=== PATIENT | male | born 1985 | race Caucasian/White ===

== ENCOUNTER 2016-10-21 12:42 | Emergency (ER) | payer OTHER ==
[~2016-10-21] VITALS: Ht 172.7 cm; Wt 74.8 kg
[~2016-10-21 12:42] MED LIST: AMOXICILLIN500 MG PO; AMOXIL500 MG PO; BACTRIM DS 8001 TAB PO; CYCLOBENZAPRINE5 M2 PO; IBUPROFEN800 M1 PO; POLYTRIM O200 GTT/BO OPH; ZOFRAN 4 MG TABL4 MG PO
[2016-10-21 12:47] VITALS: BP 128/79
--- NOTE | 2016-10-21 13:28 | ED THROAT/DENTAL COMPLAINT ---
History of Present Illness General Chief Complaint: Sore Throat, Dental Pain Stated Complaint: SWOLLEN UVULA,SORE THROAT Source: patient Exam Limitations: no limitations Vital Signs & Intake/Output Vital Signs & Intake/Output Vital Signs Date Time Temp Pulse Resp B/P Pulse O2 O2 Flow FiO2 Ox Delivery Rate 10/21 1247 98.2 69 16 128/79 98 Room Air Allergies Coded Allergies: NO KNOWN ALLERGIES (03/07/14) Reconcile Medications Augmentin (Augmentin 500-125 Tablet) 500 MG-125 MG TABLET 1 TAB PO BID PHARYNGITIS Cyclobenzaprine HCl 5 MG TABLET 1 TAB PO TIDPRN MUSCLE STRAIN Ibuprofen 800 MG TABLET 1 TAB PO TID PRN PAIN Methylprednisolone. (Medrol) 4 MG TAB.DS.PK 1 DP PO AD INFLAMMATION 6 on day 1 then reduce by one tablet daily until gone Triage Note: PT STATES HE WOKE UP WITH A SORE THROAT AND HIS UVULA IS SWOLLEN Triage Nurses Notes Reviewed? yes Onset: Abrupt Duration: constant Timing: single episode today Severity: moderate Severity Numbers: 5 Modifying Factors: Worsens With: eating. HPI: Patient is a 31-year-old male who woke up this morning noticing sore throat and uvula swelling. Patient is able tolerate by mouth denies any similar sick contacts. Denies any fever chills difficulty swallowing difficulty breathing ear pain and is otherwise without complaints. (OLIVIA LEE) Past History Travel History Traveled to [place] past 21 day No Medical History Any Pertinent Medical History? none Neurological: NONE EENT: NONE Cardiovascular: NONE Respiratory: NONE Gastrointestinal: NONE Hepatic: NONE Renal: NONE Musculoskeletal: NONE Psychiatric: NONE Endocrine: NONE Blood Disorders: NONE Cancer(s): NONE AUTOMOTIVE SERVICE DIRECTOR/Reproductive: NONE Surgical History Surgical History: non-contributory Psychosocial History What is your primary language Kyrgyz Tobacco Use: Current Daily Use Daily Tobacco Use Amount/Type: => 5 Cigarettes daily ETOH Use: occasional use Illicit Drug Use: denies illicit drug use Family History Hx Contributory? No (OLIVIA LEE) Review of Systems Review of Systems Constitutional: Denies: chills, fever. EENTM: Reports: see HPI, throat pain, throat swelling. Respiratory: Reports: no symptoms. Cardiovascular: Reports: no symptoms. GI: Reports: no symptoms. Genitourinary: Reports: no symptoms. Musculoskeletal: Reports: no symptoms. Skin: Reports: no symptoms. Neurological/Psychological: Reports: no symptoms. Hematologic/Endocrine: Reports: no symptoms. Immunologic/Allergic: Reports: no symptoms. All Other Systems: Reviewed and Negative (OLIVIA LEE) Physical Exam Physical Exam General Appearance: no apparent distress, alert Mouth/Throat: normal mouth inspection, NO PHARYNGEAL EXUDATES HOWEVER ERYTHEMA AND SWELLING NOTED, UVULA SWELLING AND ERYTHEMA NOTED, Comments: Well-developed well-nourished person in no acute distress HEENT: , extraocular motion intact, no nystagmus. Pupils equally round and reactive to light and accommodation. Nose is atraumatic. External auditory canal and Tympanic membranes clear. Neck: Supple, no lymphadenopathy, normal range of motion without pain or tenderness Back: Nontender, no CVA tenderness. Cardiovascular: Regular rate and rhythms no murmurs rubs or gallops, normal JVP Respiratory: Chest nontender. No respiratory distress.breath sounds clear to auscultation bilaterally Abdomen: Soft, nontender nondistended, no appreciable organomegaly. Normal bowel sounds. No ascites Extremity: No edema, no calf tenderness to palpation, normal and equal pulses. Neuro: Alert oriented x3, motor sensory normal, Skin: No appreciable rash on exposed skin, skin is warm and dry. Psych: Mood and affect is normal, memory and judgment is normal. Core Measures ACS in differential dx? No Severe Sepsis Present: No Septic Shock Present: No (OLIVIA LEE) Progress Differential Diagnosis: aspirated tooth, carious tooth, epiglottitis, Ludwigs angina, meningitis, odontogenic abscess, clayton-tonsillar abscess, pharyngeal for. body, stomatitis/gingivitis, strep pharyngitis, tooth fracture Plan of Care: Orders Procedure Date/time Status THROAT CULTURE W/QUICK STREP 10/21 1250 Complete Patient has positive streptococcal pharyngitis Patient was given steroids and antibiotics. No respiratory distress No dysphagia (OLIVIA LEE) Departure Departure Disposition: HOME OR SELF CARE Condition: Stable Clinical Impression Primary Impression: Streptococcal pharyngitis Secondary Impressions: Uvulitis Referrals: PATIENT HAS NO PRIMARY CARE DR (PCP/Family) Referred to [facility] as new patient No Additional Instructions: As discussed begin the prescription of Augmentin as directed for the full course AND THE PRESCRIPTION OF Medrol Dosepak for inflammation. Begin [id number] ibuprofen for pain and inflammation. YOU had been given a list of primary care doctors to call on Saturday please follow up and establish a doctor. If symptoms worsen return to emergency room. Prescriptions are waiting at [facility] pharmacy Departure Forms: Customer Survey General Discharge Information Prescriptions: Current Visit Scripts Augmentin (Augmentin 500-125 Tablet) 1 TAB PO BID #20 TAB Methylprednisolone. (Medrol) 1 DP PO AD #1 DP 6 on day 1 then reduce by one tablet daily until gone (PALMA FLEMING,OLIVIA) PA/[employer]ER Co-Sign Statement Statement: ED Attending supervision documentation- [] I saw and evaluated the patient. I have also reviewed all the pertinent lab results and diagnostic results. I agree with the findings and the plan of care as documented in the PA's/BARRER AND TACKER's documentation. [X] I have reviewed the ED Record and agree with the PA's/BARRER AND TACKER's documentation. [] Additions or exceptions (if any) to the PAs/BARRER AND TACKER's note and plan are summarized below: [] (LEEANN GREGORY,GEORGE)
[2016-10-21] MEDS ORDERED: MEDROL4 M2 PO (13:34)
[2016-10-21] MEDS ORDERED: AUGMENTIN 500-1 EACH PO (13:34)
== END 2016-10-21 14:31 ==
LOC: ERH 12:42
DX: J02.0 Streptococcal pharyngitis (principal); K12.2 Cellulitis and abscess of mouth; Z72.0 Tobacco use

== ENCOUNTER 2017-04-30 17:06 | Emergency (ER) | payer OTHER ==
[~2017-04-30] VITALS: Ht 172.7 cm; Wt 74.8 kg
[~2017-04-30 17:06] MED LIST changes: +AUGMENTIN 500-1 EACH PO; +MEDROL4 M2 PO
[2017-04-30 17:10] VITALS: BP 135/77
--- NOTE | 2017-04-30 18:07 | ED SKIN/ALLERGY COMPLAINT ---
History of Present Illness General Chief Complaint: Skin Rash/ Abcess Stated Complaint: ?ABCESS TO GROIN Source: patient Exam Limitations: no limitations Vital Signs & Intake/Output Vital Signs & Intake/Output Vital Signs Date Time Temp Pulse Resp B/P B/P Pulse O2 O2 Flow FiO2 Mean Ox Delivery Rate 04/30 1710 98.0 64 20 135/77 98 Room Air Allergies Coded Allergies: NO KNOWN ALLERGIES (03/07/14) Reconcile Medications Amoxicillin/Potassium Clav (Augmentin 875-125 Tablet) 875 MG-125 MG TABLET 1 TAB PO BID abscess Triage Note: PT TO ED C/O "CYST" TO TOP OF GROIN. NOTICED YESTERDAY. Triage Nurses Notes Reviewed? yes Onset: Gradual Duration: day(s): (2-3) Severity: mild Severity Numbers: 4 Location: suprpubic No Modifying Factors: none HPI: Patient is a 31-year-old male presenting to the emergency department with chief complaint of cyst that is increasing in size in the suprapubic region. Noticed it about 2-3 days ago. Pain is currently mild. Worse with palpation. Denies any nausea vomiting fevers or chills. Denies taking anything at home to help with symptoms. Patient reports history of similar symptoms in the past and had to have the area drained. Denies any urinary symptoms. (KAVEH RECINOS) Past History Travel History Traveled to [place] past 21 day No Medical History Any Pertinent Medical History? see below for history Neurological: NONE EENT: NONE Cardiovascular: NONE Respiratory: NONE Gastrointestinal: NONE Hepatic: NONE Renal: NONE Musculoskeletal: NONE Psychiatric: NONE Endocrine: NONE Blood Disorders: NONE Cancer(s): NONE ADVERTISING SALES REPRESENTATIVE/Reproductive: NONE Surgical History Surgical History: non-contributory Psychosocial History What is your primary language Nigerien Tobacco Use: Current Daily Use Daily Tobacco Use Amount/Type: => 5 Cigarettes daily ETOH Use: denies use Illicit Drug Use: marijuana Family History Hx Contributory? No (KAVEH RECINOS) Review of Systems Review of Systems Constitutional: Reports: no symptoms. Comments Review of systems: See HPI, All other systems negative. Constitutional, no chills fever or weight loss HEENT: No visual changes no sore throat no congestion Cardiovascular: No chest pain ,palpitation Skin, no jaundice Respiratory: No dyspnea cough sputum or hemoptysis GI: No nausea no vomiting Muscle skeletal: no back pain, no neck pain, Neurologic: No numbness Heme/endocrine: No bruising no bleeding no polyuria or polydipsia Immunology: No splenectomy or history of AIDS (KAVEH RECINOS) Physical Exam Physical Exam General Appearance: well developed/nourished, no apparent distress, alert, awake , comfortable Comments: Well-developed well-nourished person in no acute distress HEENT:atraumatic. Nose is atraumatic. Neck: normal inspection Cardiovascular: Regular rate and rhythms no murmurs rubs or gallops, normal JVP Respiratory: Chest nontender. No respiratory distress.breath sounds clear to auscultation bilaterally Extremity: No edema skin: One centimeter, slightly fluctuant, erythematous lesion noted in the suprapubic region, mildly tender, no discharge noted. Surrounding erythema is approximately 4-5 cm in size. Neuro: Alert oriented x3 Skin: No appreciable rash on exposed skin, skin is warm and dry. Psych: Mood and affect is normal, memory and judgment is normal. (KAVEH RECINOS) Progress Differential Diagnosis: abscess/cellulitis, folliculitis Plan of Care: Orders Procedure Date/time Status TRUNK AREA CULTURE 04/30 1806 Active Microbiology 04/30 1830 TRUNK: Culture & Sensitivity - RECD 04/30 1830 TRUNK: Gram Stain - RECD Comments: Patient is well-appearing in no acute distress. Patient afebrile. Patient does have small abscess noted on exam. This will be I&D and culture will be sent to lab. Patient will be started on broad-spectrum Augmentin. Advised on use of Tylenol and Motrin. (KAVEH RECINOS) Departure Departure Time of Disposition: 1816 Disposition: HOME OR SELF CARE Condition: Stable Clinical Impression Primary Impression: Abscess Referrals: PATIENT HAS NO PRIMARY CARE DR (PCP/Family) Additional Instructions: Follow-up with your primary care physician call To make an appointment. Keep area clean. Wash daily with soap and water. Apply bacitracin. Warm soaks daily. Take antibiotics as prescribed. Return for any worsening symptoms or concerns. Departure Forms: Customer Survey General Discharge Information Prescriptions: Current Visit Scripts Amoxicillin/Potassium Clav (Augmentin 875-125 Tablet) 1 TAB PO BID #20 TAB (KAVEH RECINOS) PA/MEDICAL OFFICER PSYCHIATRY Co-Sign Statement Statement: ED Attending supervision documentation- I saw and evaluated the patient. I have also reviewed all the pertinent lab results and diagnostic results. I agree with the findings and the plan of care as documented in the PA's/MEDICAL OFFICER PSYCHIATRY's documentation. x I have reviewed the ED Record and agree with the PA's/MEDICAL OFFICER PSYCHIATRY's documentation. [] Additions or exceptions (if any) to the PAs/MEDICAL OFFICER PSYCHIATRY's note and plan are summarized below: [] (IGLESIA GREGORY,PHUONG) Procedures Incision and Drainage Site: suprapubic region Blade Size: 11 I & D Procedure: Yes: betadine prep, sterile drapes applied, sterile dressing applied. No: wick placed. Progress: Tolerated procedure well. Small nonpurulent discharge expelled. Irrigated with normal saline approximately 100 mL as well as Betadine. Sterile dressing placed. Culture sent. (NINO FLEMING,KAVEH)
[2017-04-30] MEDS ORDERED: AUGMENTIN 875-1 EACH PO (18:19)
== END 2017-04-30 18:43 ==
LOC: ERH 17:06
DX: L02.211 Cutaneous abscess of abdominal wall (principal)
CPT/HCPCS: 87070